=== PATIENT | female | born 1945 | race Caucasian/White ===

== ENCOUNTER 2019-09-20 13:38 | Outpatient (CLI) | payer MEDICARE, OTHER, SELFPAY ==
--- NOTE | 2019-09-20 15:03 | ECHO_ITS ---
Patient Info Name: Suzanne Flores Age: 74 years : 1945 Gender: Female Ht: 63 in Wt: 140 lbs BSA: 1.69 m2 HR: 69 bpm BP: 106 / 68 mmHg Technical Quality: Good Exam Date: 09/20/2019 2:29 PM Exam Location: [facility] Patient Status: Outpatient Admit Date: 09/20/2019 Staff Ordering Physician: PHYSICIAN NOT ON STAFF, NONSTAFF Coil Connector Repairer: Miguel Au, TAMIA, RT Attending Provider: PHYSICIAN NOT ON STAFF, NONSTAFF Exam Type: CA echo doppler color flow Study Info Indications R06.00 - Dyspnea, unspecified Complete two-dimensional, color flow and Doppler transthoracic echocardiogram is performed. Summary 1. Left ventricular chamber dimension is normal. 2. Left ventricular systolic function is normal, estimated at 60-65%. 3. The left ventricular diastolic function is grade I diastolic dysfunction. 4. E/e' 8 is minimally elevated. 5. Global longitudinal strain is normal at -21.7%. 6. There is trace tricuspid valve regurgitation. 7. No pulmonary hypertension, estimated pulmonary arterial systolic pressure is 31 mmHg. 8. There is trace pulmonic regurgitation. Left Ventricle E/e' 8 is minimally elevated. Global longitudinal strain is normal at -21.7%. Left ventricular chamber dimension is normal. Left ventricular systolic function is normal, estimated at 60-65%. The left ventricular diastolic function is grade I diastolic dysfunction. Right Ventricle Moderator band is normal variant. Right ventricular chamber dimension is normal. Right ventricular systolic function is normal. Left Atria Left atrial chamber dimension is normal. Right Atria Right atrial chamber dimension is normal. Aortic Valve The aortic valve is trileaflet. There is no aortic valve stenosis. There is no aortic valve regurgitation. Pulmonic Valve There is trace pulmonic regurgitation. Mitral Valve There is no mitral valve stenosis. There is no mitral valve regurgitation. Tricuspid Valve There is trace tricuspid valve regurgitation. No pulmonary hypertension, estimated pulmonary arterial systolic pressure is 31 mmHg. Pericardium/Pleural There is no pericardial effusion. Inferior Vena Cava Normal inferior vena cava with >50% collapse upon inspiration consistent with normal right atrial pressure, 5 mmHg. Aorta The aortic root size at the sinus of Valsalva is normal. Left Ventricular Outflow Tract Name Value Normal LVOT 2D LVOT Diameter 1.8 cm LVOT Doppler LVOT Peak Gradient 6 mmHg LVOT Mean Gradient 3 mmHg LVOT VTI 24 cm LVOT VTI/AV VTI Ratio 0.8 LVOT Stroke Volume 62 ml LVOT CO 3.8 l/min LVOT CI 2.3 l/min/m2 Pulmonic Valve Name Value Normal PV Doppler
--- NOTE | 2019-09-20 23:04 | WPDPFTINT ---
PFT Interpretation PFT Interpretation: DOS: 09/20/2019 REQUESTING: Dr. Cisco Hendrickson REASON FOR TESTING: Dyspnea PULMONARY FUNCTION TESTS The respiratory therapist noted that the patient had difficulty with breath hold during testing, and performed maneuvers to the best of her ability. Spirometry: Normal FEV1 84%, 1.56 L. FVC 79%, mildly decreased. FEV1% is normal. The UXV58-26% is decreased at 55%. After bronchodilator, FEV1 increases 12%, almost 200 ml, and DJO12-18% increases 77% which is significant. Lung volumes: Mild restriction with total lung capacity reduced at 75%. Normal RV. No air trapping. Increased airway resistance 717%. Diffusion: DLCO is 71%, mildly reduced. Flow volume loop: Flattening of the inspiratory limb and mild scooping of expiratory limb. IMPRESSION: Mixed restrictive and obstructive processes. Small airways pattern with good response to bronchodilator, mild restriction, increased airway resistance and mild diffusion impairment. Clinical correlation is recommended. Nika Starkey MD
--- NOTE | 2019-09-20 23:13 | WPDSIXMINUTE ---
Six Minute Walk Six Minute Walk: DOS: 09/20/2019 REQUESTING: Dr. Cisco Hendrickson REASON FOR TESTING: Dyspnea SIX MINUTE WALK This test was conducted per ATS guidelines. The testing was performed on room air. Initial saturation was 98%, pulse was 67, blood pressure 120/76. She walked for 6 minutes without stopping to rest, completing 1100 feet/335 meters. Saturation at the end of the test was 91% and pulse was 95. IMPRESSION: This study shows desaturation to 91% without lang hypoxemia. No supplemental oxygen is indicated with exertion. Distance walked is adequate for age. Nika Starkey MD
== END 2019-09-20 13:39 | disposition home or self-care (01) ==
DX: R06.09 Other forms of dyspnea (principal); R94.2 Abnormal results of pulmonary function studies
CPT/HCPCS: 93306; 94060; 94726; 94729

== ENCOUNTER 2019-12-01 10:49 | Outpatient (CLI) | payer MEDICARE, OTHER, SELFPAY ==
--- NOTE | ~2019-12-01 | CT_ITS ---
EXAMINATION: CT chest wo con DATE: 12/01/2019 11:32 INDICATION: Interstitial lung disease TECHNIQUE: Computed tomography (CT) of the chest was performed without intravenous contrast. The dose -length product (DLP) was 138.83 mGy-cm. Automated exposure control and iterative reconstruction tech nique were employed. COMPARISON: None FINDINGS: There is mild dependent atelectasis of the lower lobes. There are multiple subtle 2 to 3 mm nodules scattered throughout the lungs with a lower lung zone predominance. There is no pleural effu jerod or pneumothorax. There is no evidence of interstitial lung disease. Calcified coronary artery at herosclerosis is noted. Calcified lymph nodes of the left hilum and mediastinum as well as calcificat ions of the spleen likely reflect old granulomatous disease. There is mild thoracic spondylosis. IMPRESSION: 1. Multiple subtle, tiny nodules scattered throughout the lungs, predominantly in the lower lung zone s, likely infectious or inflammatory. No evidence of interstitial lung disease. Reviewed, dictated and finalized at location A. IMPRESSION: 1. Multiple subtle, tiny nodules scattered throughout the lungs, predominantly in the lower lung zones, likely infectious or inflammatory. No evidence of inte rstitial lung disease.
== END 2019-12-01 10:50 | disposition home or self-care (01) ==
LOC: ANHIMG 10:52
PROVIDERS: PCP Nurse Practitioner Adult Health; Visit Provider Nurse Practitioner
DX: J98.4 Other disorders of lung (principal); R91.8 Other nonspecific abnormal finding of lung field
CPT/HCPCS: 71250

== ENCOUNTER 2021-05-29 12:45 | Outpatient (CLI) | payer MEDICARE, OTHER, SELFPAY ==
--- NOTE | 2021-05-29 | ECHO_ITS ---
Patient Info Name: Suzanne Flores Age: 75 years : 1945 Gender: Female Ht: 63 in Wt: 130 lbs BSA: 1.63 m2 HR: 62 bpm BP: 143 / 75 mmHg Technical Quality: Good Exam Date: 05/29/2021 1:27 PM Exam Location: [facility] Patient Status: Outpatient Admit Date: 05/29/2021 Staff Ordering Physician: TerranceDara NP Community Midwife: Maty Stovall RDCS Attending Provider: JovaniDara NP Exam Type: CA echo doppler color flow Study Info Indications - hypotension Complete two-dimensional, color flow and Doppler transthoracic echocardiogram is performed. Summary 1. Complete two-dimensional, color flow and Doppler transthoracic echocardiogram is performed. 2. Left ventricular chamber dimension is normal. 3. Left ventricular systolic function is normal, estimated at 60-65%. 4. The left ventricular diastolic function is grade I diastolic dysfunction. 5. E/e' 12 is mildly elevated. 6. There is mild mitral valve regurgitation. 7. There is trace tricuspid valve regurgitation. 8. No pulmonary hypertension, estimated pulmonary arterial systolic pressure is 36 mmHg. 9. There is trace pulmonic regurgitation. Left Ventricle E/e' 12 is mildly elevated. Left ventricular chamber dimension is normal. Left ventricular systolic function is normal, estimated at 60-65%. The left ventricular diastolic function is grade I diastolic dysfunction. Right Ventricle Right ventricular chamber dimension is normal. Right ventricular systolic function is normal. Left Atria Left atrial chamber dimension is normal. Right Atria Right atrial chamber dimension is normal. Aortic Valve The aortic valve is trileaflet. There is no aortic valve stenosis. There is no aortic valve regurgitation. Pulmonic Valve There is trace pulmonic regurgitation. Mitral Valve There is no mitral valve stenosis. There is mild mitral valve regurgitation. Tricuspid Valve There is trace tricuspid valve regurgitation. No pulmonary hypertension, estimated pulmonary arterial systolic pressure is 36 mmHg. Pericardium/Pleural There is no pericardial effusion. Inferior Vena Cava Normal inferior vena cava with >50% collapse upon inspiration consistent with normal right atrial pressure, 5 mmHg. Aorta The aortic root size at the sinus of Valsalva is normal. Left Ventricular Outflow Tract Name Value Normal LVOT 2D LVOT Diameter 2.0 cm LVOT Doppler LVOT Peak Gradient 5 mmHg LVOT Mean Gradient 3 mmHg LVOT VTI 27 cm LVOT VTI/AV VTI Ratio 0.9 LVOT Stroke Volume 80 ml LVOT CO 15.2 l/min LVOT CI 9.3 l/min/m2 Pulmonic Valve Name Value Normal PV Doppler PV Peak
== END 2021-05-29 12:46 | disposition home or self-care (01) ==
LOC: ANHCARD 12:48
PROVIDERS: PCP Nurse Practitioner Adult Health; Visit Provider Nurse Practitioner Adult Health
DX: I34.0 Nonrheumatic mitral (valve) insufficiency (principal)
CPT/HCPCS: 93306

== ENCOUNTER 2022-11-10 15:04 | Emergency (ER) | payer MEDICARE, OTHER, SELFPAY ==
--- NOTE | ~2022-11-10 | CT_ITS ---
EXAMINATION: CT brain wo con DATE: 11/10/2022 16:52 INDICATION: Altered mental status. Confusion. TECHNIQUE: Computed tomography (CT) of the head was performed without intravenous contrast. Sagittal and coronal reconstructions were performed. The mA was adjusted according to patient size. Iterative reconstruction technique was employed. The dose-length product was 605.33 mGy-cm. COMPARISON: head CT dated 03/20/2017 FINDINGS: Moderate-sized region of encephalomalacia in the anterior left frontal lobe at the site of a prior sm aller region of edema and overlying subarachnoid hemorrhage which has since resolved. No acute intrac ranial hemorrhage, acute infarction or abnormal extra axial fluid collection. There is mild scattered white matter hypoattenuation consistent with chronic small vessel ischemic disease. Interval progres jerod of symmetric prominence of the sulci and ventricles consistent with moderate age-appropriate dif fuse cerebral volume loss. No mass/mass effect. Intracranial calcified cerebral atherosclerosis is no romeo at the carotid siphons. The orbits, paranasal sinuses and mastoid air cells are normal. IMPRESSION: 1. Moderate-sized region of encephalomalacia in the left frontal lobe likely sequela of prior trauma or infarct. No other acute intracranial process. 2. Age-related changes including progression of now moderate diffuse volume loss and mild scattered w chaya matter hypoattenuation consistent with chronic small vessel ischemic disease. Reviewed, dictated and finalized at location A. IMPRESSION: 1. Moderate-sized region of encephalomalacia in the left frontal lobe likely se quela of prior trauma or infarct. No other acute intracranial process. 2. Age-related changes including progression of now moderate diffuse volume los s and mild scattered white matter hypoattenuation consistent with chronic small vessel ischemic disease.
[2022-11-10 15:09] VITALS: BP 155/64; PULSE 67; RESP 16; TEMP 36.4; O2SAT 100
--- NOTE | 2022-11-10 15:44 | ED.AMS ---
HPI - Altered Mental Status General Chief Complaint: Altered Mental Status Stated Complaint: confusion Time Seen by Provider: 11/10/22 15:26 History of Present Illness HPI narrative: Patient is a 77-year-old female here with her daughter due to concerns over bizarre behavior. Patient does have a history of Alzheimer's dementia and has been taking her medicine for this. She was initially diagnosed about a year ago, her symptoms have been progressing since onset. She lives at home by herself, daughter is concerned because today patient walked over to the police station to file a police report about a stolen car, did not remember that her family members took her car away from her because she should not be driving. Patient is upset and is adamant that her car was stolen from her. Related Data Allergies Allergy/AdvReac Type Severity Reaction Status Date / Time NO KNOWN DRUG ALLERGIES Allergy Unknown Y Uncoded 03/20/17 09:03 (Class Allergy) Review of Systems Review of Systems: Gen.: Denies fevers or chills Eyes: Denies eye pain or visual change ENT: Denies congestion Respiratory: Denies shortness of breath or cough CV: Denies chest pain or palpitations GI: Denies abdominal pain nausea, emesis or diarrhea denies burning, urgency, frequency or hematuria Musculoskeletal: Denies back pain or muscle pain Neuro: Denies numbness, tingling, weakness or focal weakness Skin: Denies rash Except as documented, all other systems reviewed and negative PMFSH Social History Social History Smoking status: Never smoker Alcohol intake: never Exam Narrative: APPEARANCE: Well appearing, no pain in distress, well-nourished. Head: Normocephalic and atraumatic. EYES: PERRLA/EOMI, conjunctivae clear NOSE: No nasal drainage EARS: External ear normal in appearance THROAT: Oropharynx is clear. Mucous membranes are moist. NECK: Supple. No adenopathy, no masses. RESPIRATORY: Airway patent, respirations nonlabored. Clear to auscultation bilaterally, no rales, rhonchi, wheezing. CARDIOVASCULAR: Regular rate and rhythm without murmurs, rubs, or gallops. ABDOMINAL: Normoactive bowel sounds. Soft, nontender, nondistended. No rebound tenderness or guarding. MUSCULOSKELETAL: Extremities are warm and well-perfused. Moves all extremities well. No edema. NEURO: Normal speech. No focal neurologic deficits. SKIN: Skin is warm and dry. No rashes. PSYCHIATRIC: Normal affect/mood. Course Vital Signs Vital signs: Vital Signs Temperature 97.6 F 11/10/22 15:09 Pulse Rate 67 11/10/22 15:09 Respiratory Rate 16 11/10/22 15:09 Blood Pressure 155/64 H 11/10/22 15:09 Pulse Oximetry 100 11/10/22 15:09 Oxygen Delivery Room Air 11/10/22 15:09 Temperature 97.6 F 11/10/22 15:09 Pulse Rate 67 11/10/22 15:09 Respiratory Rate 16 11/10/22 15:09 Blood Pressure 155/64 H 11/10/22 15:09 Pulse Oximetry 100 11/10/22 15:09 Oxygen Delivery Room Air 11/10/22 15:09 MDM - Altered Mental Status MDM Narrative Medical decision making narrative: 77-year-old female with a history of Alzheimer's dementia here with her daughter over concerns about confusion and agitation, progressing over the past several years since she was diagnosed but worse today she went to the police station and insisted her car was stolen. Patient herself is asymptomatic; remembers this event and still believes her car was stolen. Her basic labs are unremarkable. Her vital signs are normal, no focal deficits on exam. Head CT is normal. UA with questionable UTI; will treat with antibiotics. Aniyah from care coordination saw patient and provided with outpatient resources, patient lives by herself and is currently independent; no indication for admission at this time. Likely sequela of dementia. Shared decision-making was used with patient and her family, admission was offered which they declined, will use the resources provided to them. We discussed return pr
[2022-11-10 16:04] LABS: Basophils Absolute Auto 0.1 K/mm3 (0.0-0.1); Basophils Percent Auto 0.8 % (0.2-1.2); Eosinophils Absolute Auto 0.2 K/mm3 (0-0.3); Eosinophils Percent Auto 3.4 % (0-4.4); Hematocrit 39.7 % (37.0-47.0); Hemoglobin 12.6 g/dL (12.0-15.0); Immature Granulocyte Absolute 0.02 K/mm3 (0.00-0.031); Immature Granulocyte Percent A 0.3 % (0-0.5); Lymphocytes Absolute Auto 1.85 K/mm3 (0.9-3.2); Lymphocytes Percent Auto 29.7 % (18.3-44.2); Mean Corpuscular HGB Conc 31.7 g/dl (32-36); Mean Corpuscular Hemoglobin 29.4 pg (26-34); Mean Corpuscular Volume 92.8 fl (80-100); Mean Platelet Volume 10.1 fl (7.4-10.4); Monocytes Absolute Auto 0.5 K/mm3 (0.1-0.6); Monocytes Percent Auto 7.6 % (2.6-8.5); Neutrophils Absolute Auto 3.6 K/mm3 (1.3-6.7); Neutrophils Percent Auto 58.2 % (45.5-73.1); Platelet Count Result 187 k/mm3 (150-375); Red Blood Count 4.28 M/mm3 (4.2-5.4); Red Cell Distribution Width 13.7 % (11.5-14.5); White Blood Count 6.2 K/mm3 (4.5-10.0)
[2022-11-10 16:07] LABS: Appearance Urine Clear (Clear); Bacteria Urine None Seen /hpf; Bilirubin Urine Negative (Negative); Blood Urine Negative (Negative); Color Urine Yellow (Yellow); Glucose Urine UA 3+ mg/dL (Negative); Ketones Urine Trace mg/dL (Negative); Leukocyte Esterase Ur Trace LEU/UL (Negative); Nitrate Urine Negative (Negative); Non Pathogenic Casts 0-2; Protein Urine Negative (Negative); RBC Urine 0-2 /hpf (0-2); Specific Grav Ur 1.019 (1.001-1.035); Squamous Epithelial Cell Urine None seen /hpf (Few); Urobilinogen Urine 0.2 mg/dL (<2.0)
[2022-11-10 16:08] LABS: Add Urine Microscopic? YES
[2022-11-10 16:13] LABS: Alanine Aminotransferase 15 U/L (6-35); Albumin Level 4.7 g/dL (3.5-5.1); Alkaline Phosphatase 90 U/L (38-126); Anion Gap 8 mmol/L (8-16); Aspartate Amino Transferase 24 U/L (14-36); Bilirubin,Total 0.7 mg/dL (0.2-1.3); Blood Urea Nitrogen 19 mg/dL (7-17); Calcium 9.4 mg/dL (8.4-10.2); Carbon Dioxide 26 mmol/L (22-30); Chloride 101 mmol/L (98-107); Estimated CRCL calculation 32 ml/min; Estimated Glomerular Filt Rate 48; Glucose 137 mg/dL (65-110); Potassium 4.4 mmol/L (3.4-5.0); Sodium 135 mmol/L (137-145)
--- NOTE | 2022-11-10 16:44 | PCCCNOTE ---
Met with patient and daughter's Aracelis and Sondra in ER Room 16. Patient has Alztheimer's and lives alone. Her daughter Sondra lives across the street but does work. Daughter Aracelis has health issues. Patient today walked to police department to report that her car was stolen but the car was taken away by daughters due to Alztheimers. Patient verbalizes that she is fine at home, does all her own cooking, cleaning and works in her garden. Augusto conversation opened with patient and family about progression of disease and how need to open conversation now about how family can work together. Patient's goal will be to stay at home, she is adamant that she does not want memory care facility. Discussed private caregiving, Provided resources for both private caregiving and memory care facilities. Daughter Sondra states that she has called and emailed [facility] about meals on wheels and choreworker but has not heard anything back. This career representative will call and follow up. Called to , [facility] through [facility], no answer left vm message requesting a call back to Sondra Smith at [phone] to evaluated for services.
== END 2022-11-10 17:35 | disposition home or self-care (01) ==
PROVIDERS: Emergency Provider Physician Assistant; PCP Family Medicine
DX: G30.9 Alzheimer's disease, unspecified (principal); F02.80 Dementia in other diseases classified elsewhere, unspecified severity, without behavioral disturbance, psychotic disturbance, mood disturbance, and anxiety
CPT/HCPCS: 36415; 70450; 80053; 81001; 85025; 87086; 99284

== ENCOUNTER 2022-11-12 09:38 | Inpatient (IN) | payer MEDICARE, OTHER, SELFPAY ==
[2022-11-12] VITALS (9 sets, daily range): BP systolic 91–111; BP diastolic 46–78; PULSE 62–78; RESP 12–18; TEMP 36.1–37.3; O2SAT 97–100
--- NOTE | ~2022-11-12 | XR_ITS ---
Portable chest x-ray Comparison: None Clinical History: Altered mental status Findings: Lungs are clear, without focal consolidation or pleural effusion. Cardiomediastinal silho uette is unremarkable. Bones and soft tissues are unremarkable. Impression: Normal chest. Reviewed, dictated and finalized at location . Impression: Normal chest.
--- NOTE | 2022-11-12 09:49 | ECG_ITS ---
Measurements Intervals [place] Rate: 66 P: -2 SC: 131 QRS: -6 QRSD: 81 T: 48 QT: 402 QTc: 423 Interpretive Statements SINUS RHYTHM WITH SINUS ARRHYTHMIA MINIMAL VOLTAGE CRITERIA FOR LVH, CONSIDER NORMAL VARIANT [MEETS CRITERIA IN ONE OF: R(aVL), S(V1), R(V5), R(V5/V6)+S(V1)] NONSPECIFIC ST AND T-WAVE ABNORMALITY NO PREVIOUS ECG AVAILABLE FOR COMPARISON Electronically Signed On 11-12-2022 11:59:36 CDT by Nicolle Tenorio M.D.
--- NOTE | 2022-11-12 09:54 | ED.AMS ---
HPI - Altered Mental Status General Chief Complaint: Altered Mental Status <Lila Gramajo PA-C - Last Filed: 11/12/22 13:10> Stated Complaint: [id number] <Lila Gramajo PA-C - Last Filed: 11/12/22 13:10> Time Seen by Provider: 11/12/22 09:39 <Lila Gramajo PA-C - Last Filed: 11/12/22 13:10> History of Present Illness HPI narrative: Patient is a 77-year-old female here via EMS with family numbers due to concerns about aggressive behavior. Patient has a history of Alzheimer's dementia that was diagnosed about a year ago, and since diagnosis that she has been progressively worsening but the past week has been the worst. Members report that patient has been verbally and physically aggressive, hitting and kicking them. She lives by herself. She was seen here 2 days ago and was diagnosed with UTI, on chart review the culture did not grow any bacteria. Patient is verbally aggressive with staff, repeatedly stating that she wants to go home and does not need to be here. <Lila Gramajo PA-C - Last Filed: 11/12/22 13:10> Related Data Home Medications: Home Medications Medication Instructions Recorded Confirmed empagliflozin 10 mg tablet 10 mg PO DAILY 11/12/22 11/12/22 (Jardiance) ferrous sulfate 325 mg (65 mg 325 mg PO BID 11/12/22 11/12/22 iron) tablet (FeroSul) gabapentin 300 mg capsule 300 mg PO HS 11/12/22 11/12/22 levothyroxine 50 mcg tablet 50 mcg PO DAILY 11/12/22 11/12/22 lovastatin 40 mg tablet 40 mg PO DAILY 11/12/22 11/12/22 memantine 10 mg tablet 10 mg PO BID 11/12/22 11/12/22 metformin 500 mg tablet 500 mg PO BID 11/12/22 11/12/22 sertraline 50 mg tablet 100 mg PO DAILY 11/12/22 11/12/22 vitamin B complex (B 1 tablet PO DAILY 11/12/22 11/12/22 Complex-Vitamin B12 tablet) <Lila Gramajo PA-C - Last Filed: 11/12/22 13:10> Allergies/Adverse Reactions: Allergies Allergy/AdvReac Type Severity Reaction Status Date / Time NO KNOWN DRUG ALLERGIES Allergy Unknown Y Uncoded 11/12/22 09:51 (Class Allergy) <Lila Gramajo PA-C - Last Filed: 11/12/22 13:10> Review of Systems Review of Systems: ROS unobtainable: Yes unobtainable due to mental status <Lila Gramajo PA-C - Last Filed: 11/12/22 13:10> [facility] Past Medical History Medical History: Medical History (Updated 11/12/22 @ 13:40 by Urmila Bang PA-C) Chronic kidney disease, stage 3 Dementia Hyperlipidemia Hypertension Left leg DVT (08/2001) Type 2 diabetes mellitus <Lila Gramajo PA-C - Last Filed: 11/12/22 13:10> Social History Social History: Social History (Updated 11/12/22 @ 13:29 by Urmila Bang PA-C) Social History: Surrogate medical decision maker: Code status: Smoking status: Never smoker Alcohol intake: never Substance use: never Additional living arrangements comments: Lives in [place]. Additional occupation/education comments: Retired from [employer]. Spiritual care concerns: No <Lila Gramajo PA-C - Last Filed: 11/12/22 13:10> Exam Narrative: APPEARANCE: Well-groomed, sitting in bed yelling at staff members and EMS personnel Head: Normocephalic and atraumatic. EYES: PERRLA/EOMI, conjunctivae clear NOSE: No nasal drainage EARS: External ear normal in appearance THROAT: Oropharynx is clear. Mucous membranes are moist. NECK: Supple. No adenopathy, no masses. RESPIRATORY: Airway patent, respirations nonlabored. Clear to auscultation bilaterally, no rales, rhonchi, wheezing. CARDIOVASCULAR: Regular rate and rhythm without murmurs, rubs, or gallops. ABDOMINAL: Normoactive bowel sounds. Soft, nontender, nondistended. No rebound tenderness or guarding. MUSCULOSKELETAL: Extremities are warm and well-perfused. Moves all extremities well. No edema. NEURO: Normal speech. No focal neurologic deficits. SKIN: There is a skin tear to her right forearm with no
[2022-11-12 10:21] LABS: Basophils Absolute Auto 0.1 K/mm3 (0.0-0.1); Basophils Percent Auto 1.1 % (0.2-1.2); Eosinophils Absolute Auto 0.2 K/mm3 (0-0.3); Hematocrit 38.2 % (37.0-47.0); Hemoglobin 11.9 g/dL (12.0-15.0); Immature Granulocyte Absolute 0.01 K/mm3 (0.00-0.031); Immature Granulocyte Percent A 0.2 % (0-0.5); Lymphocytes Absolute Auto 1.32 K/mm3 (0.9-3.2); Lymphocytes Percent Auto 23.2 % (18.3-44.2); Mean Corpuscular HGB Conc 31.2 g/dl (32-36); Mean Corpuscular Volume 92.9 fl (80-100); Mean Platelet Volume 10.4 fl (7.4-10.4); Monocytes Absolute Auto 0.4 K/mm3 (0.1-0.6); Monocytes Percent Auto 7.2 % (2.6-8.5); Neutrophils Absolute Auto 3.7 K/mm3 (1.3-6.7); Neutrophils Percent Auto 65.3 % (45.5-73.1); Platelet Count Result 171 k/mm3 (150-375); Red Blood Count 4.11 M/mm3 (4.2-5.4); Red Cell Distribution Width 13.6 % (11.5-14.5); White Blood Count 5.7 K/mm3 (4.5-10.0)
[2022-11-12 10:25] LABS: Ammonia < 9 umol/L (9-30)
[2022-11-12 10:26] LABS: Alanine Aminotransferase 18 U/L (6-35); Albumin Level 4.5 g/dL (3.5-5.1); Alkaline Phosphatase 95 U/L (38-126); Anion Gap 8 mmol/L (8-16); Aspartate Amino Transferase 26 U/L (14-36); Bilirubin,Total 0.6 mg/dL (0.2-1.3); Blood Urea Nitrogen 23 mg/dL (7-17); Calcium 9.4 mg/dL (8.4-10.2); Carbon Dioxide 25 mmol/L (22-30); Chloride 104 mmol/L (98-107); Estimated CRCL calculation 27 ml/min; Estimated Glomerular Filt Rate 40; Glucose 236 mg/dL (65-110); Potassium 4.1 mmol/L (3.4-5.0); Sodium 137 mmol/L (137-145)
[2022-11-12 11:03] LABS: Appearance Urine Clear (Clear); Bilirubin Urine Negative (Negative); Blood Urine Negative (Negative); Color Urine Yellow (Yellow); Glucose Urine UA 3+ mg/dL (Negative); Ketones Urine Negative (Negative); Leukocyte Esterase Ur Negative LEU/UL (Negative); Nitrate Urine Negative (Negative); Protein Urine Negative (Negative); Urobilinogen Urine 0.2 mg/dL (<2.0)
[2022-11-12] MEDS: SODIUM CHLORIDE 0.9% IV 1,000 ML 999 ML IV CONT (11:05)
[2022-11-12 11:08] LABS: Add Urine Microscopic? NO
--- NOTE | 2022-11-12 11:55 | PC.NURSE ---
Pt has remained verbally abusive to staff and family members since arr
--- NOTE | 2022-11-12 11:59 | PC.NURSE ---
Pt has remained verbally abusive to staff and family members since arrival.
--- NOTE | 2022-11-12 13:25 | PM.IMHP ---
H&P: HPI History of Present Illness Date/Time: 11/12/22 14:15 Chief Complaint: Agitation. Narrative: This is a 77-year-old female with dementia, hypertension, hyperlipidemia, diabetes, and remote history of DVT who presented to the emergency department via EMS from home for evaluation of agitation. She is a fair historian and her daughter and granddaughter provide additional history, with the patient's permission. She was diagnosed with dementia about a year ago and she has been doing quite well on memantine although it looks as though she was started on donepezil little over a month ago. Within the past week or so family members note that she has had a significant change in behavior. She has been argumentative and perseverating on the fact that her daughter will not give her the keys to her car which she has not had for over 6 months. She filed a police report a couple of days ago, stating that her son had stolen her late 's truck, however she had given him that truck approximately 6 months ago. She has been going across the street to her daughter's home and she has been very argumentative with her regarding her car keys. Last night her son-in-law had to call the police because she was so aggressive. Thereafter she went back to her house and was up until 02:00 cleaning out her garage and sitting in a lawn chair out in her yard. It does not sound as though she has been sleeping much which is unusual for her as prior to the last several weeks it sounds as though he was not very active during the daytime whatsoever. Family members are having difficulties controlling her and are concerned that she is not safe at home alone. They are not certain she is taking her medications appropriately at home. It is noted that she was seen in the ED 2 days ago after she filed a police report and at that time her urine was suspicious for possible UTI and she was prescribed nitrofurantoin however her urine culture did not show any growth. She was reportedly combative with EMS and ER staff on arrival and she was given 2.5 mg IM Haldol in the ED with some improvement her mood. She is pleasant and mostly cooperative with me at the time my evaluation but she frequently starts arguments with her family members at bedside. She has no complaints currently. Vital signs have been stable. Labs were reviewed and they are pretty consistent with those drawn a couple of days ago. Review of Systems Review of Systems: Reviewed and are negative though limited given her confusion. [facility] Past Medical History Medical History (Updated 11/12/22 @ 20:51 by Urmila Bang PA-C) Chronic kidney disease, stage 3 Dementia Hyperlipidemia Hypertension Left leg DVT (08/2001) No history of major surgery within 1 month Type 2 diabetes mellitus Family History Family History (Updated 11/12/22 @ 20:47 by Urmila Bang PA-C) Mother Alzheimer's dementia Social History Social History (Updated 11/12/22 @ 20:48 by Urmila Bang PA-C) Social History: Surrogate medical decision maker: Aracelis Peck, daughter. Code status: Full code. Smoking status: Never smoker Alcohol intake: never Substance use: never Additional living arrangements comments: Lives alone in [place]. She has a 1-year-old dog named Franck. Daughter lives across the street. 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 Spiritual care concerns: No Meds Home Medications and Allergies Home Medications Medication Instructions Recorded Confirmed Type empagliflozin 10 mg tablet 10 mg PO DAILY 11/12/22 11/12/22 History (Jardiance) ferrous sulfate 325 mg (65 mg 325 mg PO BID 11/12/22 11/12/22 History iron) tablet (FeroSul) gabapentin 300 mg capsule 300 mg PO HS 11/12/22 11/12/22 History levothyroxine 50 mcg tablet 50 mcg PO DAILY 11/12/22 11/12/22 History lovastatin 40 mg tablet 40 mg PO DAILY 11/12/22 11/12/22 History memantine 10 mg
--- NOTE | 2022-11-12 14:44 | ADMGEN ---
This patient, Suzanne Flores, was admitted to [facility] Surg Room 331-02. Patient/family oriented to hospital policies and general routines including ID bracelet, bed and alarms, visiting hours, pain management, procedures, bathroom and other care routines, personal items, smoking policy, room service/diet, and visiting hours. Information on how to activate the Rapid Response Team has been discussed. Patient/Family are encouraged to report perceived risks to care and to ask questions if they do not understand what they are told or what they should do.
[2022-11-12 20:06] LABS: Glucose Point of Care 212 mg/dl (65-105)
[2022-11-12] MEDS: GABAPENTIN 300 MG CAPSULE PO (22:31)
[2022-11-13] VITALS (7 sets, daily range): BP systolic 109–134; BP diastolic 55–75; PULSE 58–83; RESP 16; TEMP 35.8–36.2; O2SAT 99
[2022-11-13] MEDS: LEVOTHYROXINE SODIUM 50 MCG TABLET PO (05:08)
[2022-11-13 06:47] LABS: Hematocrit 32.7 % (37.0-47.0); Hemoglobin 10.1 g/dL (12.0-15.0); Mean Corpuscular HGB Conc 30.9 g/dl (32-36); Mean Corpuscular Hemoglobin 28.8 pg (26-34); Mean Corpuscular Volume 93.2 fl (80-100); Mean Platelet Volume 10.3 fl (7.4-10.4); Platelet Count Result 132 k/mm3 (150-375); Red Blood Count 3.51 M/mm3 (4.2-5.4); Red Cell Distribution Width 13.8 % (11.5-14.5); White Blood Count 5.2 K/mm3 (4.5-10.0)
[2022-11-13 07:03] LABS: Anion Gap 4 mmol/L (8-16); Blood Urea Nitrogen 20 mg/dL (7-17); Calcium 8.5 mg/dL (8.4-10.2); Carbon Dioxide 26 mmol/L (22-30); Chloride 107 mmol/L (98-107); Estimated CRCL calculation 35 ml/min; Estimated Glomerular Filt Rate 54; Glucose 155 mg/dL (65-110); Magnesium 1.8 mg/dL (1.6-2.3); Potassium 3.9 mmol/L (3.4-5.0); Sodium 137 mmol/L (137-145)
[2022-11-13 07:34] LABS: Hemoglobin A1C 7.3 % (<5.7)
[2022-11-13 08:22] LABS: Glucose Point of Care 151 mg/dl (65-105)
[2022-11-13] MEDS: LOVASTATIN 20 MG TABLET 40 MG PO (09:07)
[2022-11-13] MEDS: SERTRALINE HCL 50 MG TABLET 100 MG PO (09:07)
[2022-11-13] MEDS: MEMANTINE 10 MG TABLET PO ×2 (09:07→16:01)
[2022-11-13] MEDS: FERROUS SULFATE 324 MG TABLET PO ×2 (09:07→16:01)
[2022-11-13] MEDS: EMPAGLIFLOZIN 10 MG TABLET PO (09:08)
[2022-11-13] MEDS: VITAMIN B COMPLEX CAPSULE 1 CAP PO (09:08)
--- NOTE | 2022-11-13 10:59 | PM.IMPN ---
Progress Note: A&P Assessment and Plan (1) Dementia with behavioral disturbance: Code(s): F03.918 - Unspecified dementia, unspecified severity, with other behavioral disturbance Status: Acute Assessment and Plan: Patient was diagnosed with dementia about a year ago and had been maintained on memantine although she was recently started on donepezil a little over a month ago. It is unclear what has caused her change in behavior the last 1 week however it sounds as though she has not been sleeping well and sleep deprivation may very well be a contributing factor. Donepezil can cause insomnia so that is a consideration as well. There is no evidence to suggest active infection on labs or by history. Her BUN and creatinine are a bit elevated from baseline though not significantly so and I doubt that dehydration is playing a part. I will ask Neurology to see her in consultation for recommendations. In interim she will be started on melatonin 5 mg at bedtime. 11/13/2022 interval history: patient was brought to ER with agitation and fighting patient had CT scan of head and it showed moderate-sized region of encephalomalacia in the left frontal lobe likely sequela of prior trauma or infarct. No other acute intracranial process. Currently patient eating her breakfast is feeling much better, patient is calmer and cooperative, patient will need a place will discussed with the urgent care physician and further recommendation to follow will have a PT OT evaluate the patient. (2) Chronic kidney disease, stage 3: Code(s): N18.30 - Chronic kidney disease, stage 3 unspecified Status: Acute Assessment and Plan: Stable on review of previous labs. (3) Type 2 diabetes mellitus: Code(s): E11.9 - Type 2 diabetes mellitus without complications Status: Acute Assessment and Plan: Random glucose was 236. Continue Jardiance. Initiate sliding scale insulin, Accu-Cheks, and hypoglycemic protocol. Subjective Date/time seen: 11/13/22 10:59 Interval history: Agitation. Narrative: This is a 77-year-old female with dementia, hypertension, hyperlipidemia, diabetes, and remote history of DVT who presented to the emergency department via EMS from home for evaluation of agitation. She is a fair historian and her daughter and granddaughter provide additional history, with the patient's permission. She was diagnosed with dementia about a year ago and she has been doing quite well on memantine although it looks as though she was started on donepezil little over a month ago. Within the past week or so family members note that she has had a significant change in behavior. She has been argumentative and perseverating on the fact that her daughter will not give her the keys to her car which she has not had for over 6 months. She filed a police report a couple of days ago, stating that her son had stolen her late 's truck, however she had given him that truck approximately 6 months ago. She has been going across the street to her daughter's home and she has been very argumentative with her regarding her car keys. Last night her son-in-law had to call the police because she was so aggressive. Thereafter she went back to her house and was up until 02:00 cleaning out her garage and sitting in a lawn chair out in her yard. It does not sound as though she has been sleeping much which is unusual for her as prior to the last several weeks it sounds as though he was not very active during the daytime whatsoever. Family members are having difficulties controlling her and are concerned that she is not safe at home alone. They are not certain she is taking her medications appropriately at home. It is noted that she was seen in the ED 2 days ago after she filed a police report and at that time her urine was suspicious for possible UTI and she was prescribed nitrofurantoin however her urine culture did not show any growth. She was reportedly combative with E
--- NOTE | 2022-11-13 11:33 | WPDNEURCNPN ---
Assessment and Plan Assessment and plan (1) Dementia with behavioral disturbance: Code(s): F03.918 - Unspecified dementia, unspecified severity, with other behavioral disturbance Status: Acute (2) Agitation: Code(s): R45.1 - Restlessness and agitation Status: Acute Plan Suzanne Flores is a 77 year old female with a history of dementia, HTN, HLD, DM presenting due to concerns for agitation. There does not seem to be any provoking factors. Could be related to progression of dementia, but such acute change is unusual. Considering sleep deprivation as enticing factor. Family thinks maybe sleep issues started around the time that Aricept was started. - Family would like to hold off on any additional medications for agitation at this time - Continue Namenda 10mg BID - Will wean Aricept to 5mg daily x 1 week, then discontinue; trying to see if sleep will improve - Daughter would like to have patient follow up in [facility] Consult date: 11/13/22 Reason for consult: Dementia/agitation HPI: Suzanne Flores is a 77 year old female with a history of dementia, HTN, HLD, DM presenting due to concerns for agitation. Patient was diagnosed with dementia about a year ago. She has been taking Namenda 10mg BID consistently since then. However, about a month ago she was started on donepezil. Within the past week, family has noted that she has been more argumentative and combative. She has been arguing with her daughter about car keys and believes that her son stole her 's truck. The police had to be called, because patient was being so aggressive. Of note, patient has not been sleeping well over the past few weeks. Family has concerns regarding her safety at home. She was seen in the ED a few days ago and her UA at that time was concerning for possible UTI. She was given antibiotics but her urine culture ended up being negative. When she presented to the ED the second time (for agitation), she was combative and given 2.5mg IM dose of Haldol. CT head showed moderate sized region of encephalomalacia in the left frontal lobe. Patient's daughters are at bedside this morning. They feel that she is back to her baseline. Patient reports that she was just angry about the situation with her car and feels better. Review of Systems Constitutional: Constitutional: Reports no additional constitutional complaints Eyes: Eyes: Reports no additional eye complaints ENT: Reports system reviewed and no additional complaints, except as documented Cardiovascular: Cardiovascular: Reports no additional cardiovascular complaints Respiratory: Respiratory: Reports no additional respiratory complaints Gastrointestinal: Gastrointestinal: Reports no additional gastrointestinal complaints Genitourinary: Genitourinary: Reports no additional female genitourinary complaints Musculoskeletal: Musculoskeletal: Reports no additional musculoskeletal complaints Integumentary/Breasts: Skin/Breast: Reports system reviewed and no additional complaints, except as docu Neurologic: Reports as per HPI Psychiatric: Psychiatric: Reports anxiety, Reports behavioral changes and Reports depression PMFSH Past Medical History Medical History Chronic kidney disease, stage 3 Dementia Hyperlipidemia Hypertension Left leg DVT (08/2001) No history of major surgery within 1 month Type 2 diabetes mellitus Family History Family History Mother Alzheimer's dementia Social History Social History Social History: Surrogate medical decision maker: Aracelis Peck, daughter. Code status: Full code. Smoking status: Never smoker Alcohol intake: never Substance use: never Additional living arrangements comments: Lives alone in [place]. She has a 1-year-old dog named Franck. Daughter lives across the street.
[2022-11-13 11:54] LABS: Glucose Point of Care 159 mg/dl (65-105)
--- NOTE | 2022-11-13 14:12 | PM.DS ---
DS: Admitting Diagnosis Discharge Date 11/13/2022 Admitting Diagnosis Agitation. DS: Discharge Diagnosis Discharge Diagnosis (1) Dementia with behavioral disturbance: Code(s): F03.918 - Unspecified dementia, unspecified severity, with other behavioral disturbance Status: Acute Assessment and Plan: Patient was diagnosed with dementia about a year ago and had been maintained on memantine although she was recently started on donepezil a little over a month ago. It is unclear what has caused her change in behavior the last 1 week however it sounds as though she has not been sleeping well and sleep deprivation may very well be a contributing factor. Donepezil can cause insomnia so that is a consideration as well. There is no evidence to suggest active infection on labs or by history. Her BUN and creatinine are a bit elevated from baseline though not significantly so and I doubt that dehydration is playing a part. I will ask Neurology to see her in consultation for recommendations. In interim she will be started on melatonin 5 mg at bedtime. 11/13/2022 interval history: patient was brought to ER with agitation and fighting patient had CT scan of head and it showed moderate-sized region of encephalomalacia in the left frontal lobe likely sequela of prior trauma or infarct. No other acute intracranial process. Currently patient eating her breakfast is feeling much better, patient is calmer and cooperative, patient will need a place will discussed with the primary care md and further recommendation to follow will have a PT OT evaluate the patient. (2) Chronic kidney disease, stage 3: Code(s): N18.30 - Chronic kidney disease, stage 3 unspecified Status: Acute Assessment and Plan: Stable on review of previous labs. (3) Type 2 diabetes mellitus: Code(s): E11.9 - Type 2 diabetes mellitus without complications Status: Acute Assessment and Plan: Random glucose was 236. Continue Jardiance. Initiate sliding scale insulin, Accu-Cheks, and hypoglycemic protocol. DS: Summary Hospital Course Reason for hospitalization: Agitation. Narrative: This is a 77-year-old female with dementia, hypertension, hyperlipidemia, diabetes, and remote history of DVT who presented to the emergency department via EMS from home for evaluation of agitation. She is a fair historian and her daughter and granddaughter provide additional history, with the patient's permission. She was diagnosed with dementia about a year ago and she has been doing quite well on memantine although it looks as though she was started on donepezil little over a month ago. Within the past week or so family members note that she has had a significant change in behavior. She has been argumentative and perseverating on the fact that her daughter will not give her the keys to her car which she has not had for over 6 months. She filed a police report a couple of days ago, stating that her son had stolen her late 's truck, however she had given him that truck approximately 6 months ago. She has been going across the street to her daughter's home and she has been very argumentative with her regarding her car keys. Last night her son-in-law had to call the police because she was so aggressive. Thereafter she went back to her house and was up until 02:00 cleaning out her garage and sitting in a lawn chair out in her yard. It does not sound as though she has been sleeping much which is unusual for her as prior to the last several weeks it sounds as though he was not very active during the daytime whatsoever. Family members are having difficulties controlling her and are concerned that she is not safe at home alone. They are not certain she is taking her medications appropriately at home. It is noted that she was seen in the ED 2 days ago after she filed a police report and at that time her urine was suspicious for possible UTI and she was prescribed nitrofurantoin
== END 2022-11-13 15:35 | disposition home or self-care (01) | DRG 884 ==
LOC: ANHED 11:43 → ANH3MEDSUR 13:58
PROVIDERS: Physician Assistant; Admitting Provider Family Medicine; Emergency Provider Physician Assistant; PCP Family Medicine; Visit Provider Family Medicine
DX: F03.918 Unspecified dementia, unspecified severity, with other behavioral disturbance (principal); I12.9 Hypertensive chronic kidney disease with stage 1 through stage 4 chronic kidney disease, or unspecified chronic kidney disease; N18.30 Chronic kidney disease, stage 3 unspecified; E11.22 Type 2 diabetes mellitus with diabetic chronic kidney disease; N18.9 Chronic kidney disease, unspecified; E78.5 Hyperlipidemia, unspecified; Z86.718 Personal history of other venous thrombosis and embolism
CPT/HCPCS: 36415; 71045; 80048; 80053; 81003; 82140; 82948; 83036; 83735; 84436; 84443; 85025; 85027; 93005; 96360; 99285; A9270; G0378; J7030

== ENCOUNTER 2024-04-30 15:10 | Emergency (ER) | payer MEDICARE, OTHER, SELFPAY ==
[2024-04-30 15:18] VITALS: BP 115/57; PULSE 69; RESP 15; TEMP 36.6; O2SAT 98
[2024-04-30 15:30] LABS: Glucose Point of Care 243 mg/dl (65-105)
[2024-04-30 17:01] VITALS: BP 123/106; PULSE 63; RESP 16; O2SAT 97
[2024-04-30 17:12] LABS: Add Urine Microscopic? NO; Appearance Urine Clear (Clear); Bilirubin Urine Negative (Negative); Blood Urine Negative (Negative); Color Urine Yellow (Yellow); Glucose Urine UA 3+ mg/dL (Negative); Ketones Urine Negative (Negative); Leukocyte Esterase Ur Negative LEU/UL (Negative); Nitrate Urine Negative (Negative); Protein Urine Negative (Negative); Specific Grav Ur 1.028 (1.001-1.035); Urobilinogen Urine 0.2 mg/dL (<2.0)
--- NOTE | 2024-04-30 17:22 | ED.GENADULT ---
HPI - General Adult General Chief complaint: Recheck/Abnormal Lab/Rx Stated complaint: increased BG and swolllen extremity Time Seen by Provider: 04/30/24 16:33 History of Present Illness HPI narrative: Was 78-year-old female presents to the emergency department for evaluation for lower extremity edema and elevated blood sugar. Patient is cared for by her family members but her family members were out of town and the patient was being cared for by friends of the family. A friend of the family became concerned because they noticed the patient had lower extremity edema, daughter states this is not new for her. Also checked her blood sugar and noted it was greater than 500. Daughter is unsure if there glucometer has been calibrated. Upon arrival to the emergency department patient's blood sugar was 243 which is by closer to the patient's baseline, patient does not check her blood sugar at her baseline. Patient denies any pain or complaints, patient does have Alzheimer's and is at her typical neuro baseline. Related Data Home Medications Medication Instructions Recorded Confirmed empagliflozin 10 mg tablet 10 mg PO DAILY 11/12/22 11/12/22 (Jardiance) ferrous sulfate 325 mg (65 mg 325 mg PO BID 11/12/22 11/12/22 iron) tablet (FeroSul) gabapentin 300 mg capsule 300 mg PO HS 11/12/22 11/12/22 levothyroxine 50 mcg tablet 50 mcg PO DAILY 11/12/22 11/12/22 lovastatin 40 mg tablet 40 mg PO DAILY 11/12/22 11/12/22 memantine 10 mg tablet 10 mg PO BID 11/12/22 11/12/22 metformin 500 mg tablet 500 mg PO BID 11/12/22 11/12/22 sertraline 50 mg tablet 100 mg PO DAILY 11/12/22 11/12/22 vitamin B complex (B 1 tablet PO DAILY 11/12/22 11/12/22 Complex-Vitamin B12 tablet) Allergies Allergy/AdvReac Type Severity Reaction Status Date / Time NO KNOWN DRUG ALLERGIES Allergy Unknown Y Uncoded 04/30/24 15:22 (Class Allergy) Review of Systems Review of Systems: All systems reviewed & are unremarkable except as noted in HPI and below PMFSH Past Medical History Medical History Chronic kidney disease, stage 3 Dementia Hyperlipidemia Hypertension Left leg DVT (08/2001) No history of major surgery within 1 month Type 2 diabetes mellitus Family History Family History Mother Alzheimer's dementia Social History Social History Social History: Surrogate medical decision maker: Aracelis Peck, daughter. Code status: Full code. Smoking status: Never smoker Alcohol intake: never Substance use: never Additional living arrangements comments: Lives alone in [place]. She has a 1-year-old dog named Franck. Daughter lives across the street. Additional occupation/education comments: Retired from [employer]. Spiritual care concerns: No Exam Narrative: APPEARANCE: Well appearing, no pain, no distress, well-nourished. HEAD: normocephalic, atraumatic. EYES: PERRLA/EOMI, conjunctivae clear. NOSE: Normal no drainage EARS:TMS clear with good light reflex. THROAT: Pharynx clear, no exudate. NECK: Supple. No adenopathy, no masses. RESPIRATORY: Airway patent, respirations nonlabored. Clear to auscultation bilaterally, no rales, rhonchi, wheezing. CARDIOVASCULAR: Regular rate and rhythm without murmurs rubs or gallops. ABDOMINAL: Soft, nontender, nondistended, normal bowel sounds MUSCULOSKELETAL: Moves all extremities. Strength/ROM intact, No edema, No calf tenderness. NEURO: Alert. Cranial nerves II through XII intact. Good gait. Good coordination SKIN: Warm, dry. Normal Color Course Vital Signs Vital signs: Vital Signs Temperature 97.8 F 04/30/24 15:18 Pulse Rate 69 04/30/24 15:18 Respiratory Rate 15 04/30/24 15:18 Blood Pressure 115/57 L 04/30/24 15:18 Pulse Oximetry 98 04/30/24 15:18 Temperature 97.8 F 04/30/24 15
[2024-04-30 17:25] LABS: Alanine Aminotransferase 11 U/L (6-35); Albumin Level 4.2 g/dL (3.5-5.1); Alkaline Phosphatase 79 U/L (38-126); Anion Gap 9 mmol/L (4-12); Aspartate Amino Transferase 19 U/L (14-36); Bilirubin,Total 0.3 mg/dL (0.2-1.3); Blood Urea Nitrogen 17 mg/dL (7-17); Calcium 9.3 mg/dL (8.4-10.2); Carbon Dioxide 23 mmol/L (22-30); Chloride 105 mmol/L (98-107); Estimated CRCL calculation 27 ml/min; Estimated Glomerular Filt Rate 40; Glucose 145 mg/dL (65-110); Lipase 106 U/L (23-300); Potassium 3.9 mmol/L (3.4-5.0); Sodium 137 mmol/L (137-145)
[2024-04-30 17:29] LABS: Beta-Hydroxybutyrate/Acetoacetate 0.09 mmol/L (0.02-0.27)
[2024-04-30 17:37] LABS: Basophils Absolute Auto 0.1 K/mm3 (0.0-0.1); Basophils Percent Auto 1.1 % (0.2-1.2); Eosinophils Absolute Auto 0.5 K/mm3 (0-0.3); Eosinophils Percent Auto 8.2 % (0-4.4); Hemoglobin 10.8 g/dL (12.0-15.0); Immature Granulocyte Absolute 0.02 K/mm3 (0.00-0.031); Immature Granulocyte Percent A 0.4 % (0-0.5); Lymphocytes Absolute Auto 2.25 K/mm3 (0.9-3.2); Lymphocytes Percent Auto 39.9 % (18.3-44.2); Mean Corpuscular HGB Conc 31.8 g/dl (32-36); Mean Corpuscular Hemoglobin 29.7 pg (26-34); Mean Corpuscular Volume 93.4 fl (80-100); Mean Platelet Volume 10.6 fl (7.4-10.4); Monocytes Absolute Auto 0.4 K/mm3 (0.1-0.6); Monocytes Percent Auto 7.1 % (2.6-8.5); Neutrophils Absolute Auto 2.5 K/mm3 (1.3-6.7); Neutrophils Percent Auto 43.3 % (45.5-73.1); Platelet Count Result 120 k/mm3 (150-375); Red Blood Count 3.64 M/mm3 (4.2-5.4); Red Cell Distribution Width 14.2 % (11.5-14.5); White Blood Count 5.6 K/mm3 (4.5-10.0)
[2024-04-30 18:20] VITALS: BP 135/83; PULSE 72; RESP 16; O2SAT 97
== END 2024-04-30 18:22 | disposition home or self-care (01) ==
PROVIDERS: Emergency Provider Emergency Medicine; PCP Family Medicine
DX: E11.65 Type 2 diabetes mellitus with hyperglycemia (principal); I12.9 Hypertensive chronic kidney disease with stage 1 through stage 4 chronic kidney disease, or unspecified chronic kidney disease; E11.22 Type 2 diabetes mellitus with diabetic chronic kidney disease; N18.30 Chronic kidney disease, stage 3 unspecified; E78.5 Hyperlipidemia, unspecified; Z86.718 Personal history of other venous thrombosis and embolism; Z79.84 Long term (current) use of oral hypoglycemic drugs; Z79.899 Other long term (current) drug therapy
CPT/HCPCS: 36415; 80053; 81003; 82010; 82948; 83690; 85025; 99283

== ENCOUNTER 2024-08-13 17:18 | Emergency (ER) | payer MEDICARE, OTHER, SELFPAY ==
--- NOTE | ~2024-08-13 | CT_ITS ---
EXAMINATION: CT brain wo con DATE: 08/13/2024 18:22 INDICATION: ams/confusion x1 day . TECHNIQUE: Computed tomography (CT) of the head was performed without intravenous contrast. The mA wa s adjusted according to patient size. Iterative reconstruction technique was employed. The dose-lengt h product was 605.33 mGy-cm. COMPARISON: 11/10/2022. FINDINGS: No acute intracranial hemorrhage or extra-axial fluid collection. No hydrocephalus, mass, or herniation. No acute ischemic infarct. Unremarkable dural venous sinus attenuation. No acute osseous abnormality. The aerated spaces are clear. Moderate atrophy and mild chronic white matter change. Atherosclerotic intracranial calcification. Le ft frontal encephalomalacia. IMPRESSION: No acute intracranial process. Reviewed, dictated and finalized at location K. TRACER
--- NOTE | ~2024-08-13 | XR_ITS ---
EXAMINATION: XR chest 1V portable Exam Date/Time: 08/13/2024 18:12 METER READER HISTORY: ams/cough Comparison: 11/12/2022. RESULT: Lines, tubes, and devices: None. Lungs and pleura: Mild diffuse reticular opacities. Minimal fissural fluid. Cardiomediastinal silhouette: Stable. Other: No acute osseous or upper abdominal finding. IMPRESSION: Mild interstitial edema. Reviewed, dictated and finalized at location K. R READER IMPRESSION: Mild interstitial edema.
[2024-08-13 17:21] VITALS: BP 133/68; PULSE 66; RESP 20; O2SAT 94
--- OUTSIDE RECORDS SUMMARY | 2024-08-13 17:21 | XMS_ITS | Referral Summary ---
Author Organization [facility] Address [address] [place] [id number] Care Team Providers Care Pick Pack Worker Name Role Phone Terrance Dara GIORGI Primary Care Provider [phone] Allergies No known active allergies Medications gabapentin (NEURONTIN) 300 mg capsule gabapentin 300 mg caps Active FeroSuL 325 mg (65 mg iron) tablet Take 1 tablet by mouth 2 (two) times a day 2 Active Euthyrox 50 mcg tablet Take 50 mcg by mouth daily for 30 days 2 Active lovastatin (MEVACOR) 40 mg tablet Take 40 mg by mouth nightly 2 Active metFORMIN (GLUCOPHAGE) 500 mg tablet Take 500 mg by mouth 2 (two) times a day 2 Active sertraline (ZOLOFT) 50 mg tablet sertraline 50 mg tablet Active memantine (NAMENDA) 10 mg tabletIndicatio ns:Moderate to Severe Alzheimer's Type Dementia Take 1 tablet (10 mg total) by mouth 2 (two) times a day 180 tablet 3 3 Active donepeziL (ARICEPT) 10 mg tablet Take 1/2 tab at night for 7 days then take 1 tab nightly thereafter. 30 tablet 11 3 Active Active Problems Problem Noted Date Diagnosed Date Late onset Alzheimer's demen tia without behavioral disturbance 05/29/2020 Social History Tobacco Use Types Packs/Day Years Used Date Smoking Tobacco: Never Tobacco Cessation:Counseling Given: Not Answered AUDIT-C Answer Date Recorded Q1: How often do you have a drink containing alc ohol? Never 10/15/2021 Average Number of Drinks Not on file 022 Q3: How often do you have si x or more drinks on one occasion? Never 10/15/2021 Personal Safety Answer Date Recorded Getting School Help Needed Not on file 09/17 Comments No Sex and Gender Information Value Date Recorded Sex Assigned at Not on file Legal Sex Female 9:43 AM CDT Gender Identity Not on file Sexual Orientation Not on file Last Filed Vital Signs Vital Sign Reading Time Taken Comments Blood Pressure 129/70 04/28/2022 11:21 AM CDT Pulse 71 04/28/2022 11:21 AM CDT Temperature 36.6 ??C (97.9 ??F) 10/15/2021 12:35 PM C DT Respiratory Rate 16 10/15/2021 3:20 PM CDT Oxygen Saturation 99% 04/28/2022 11:21 AM CDT Inhaled Oxygen Concentration - - Weight 60.1 kg (132 lb 9.6 oz) 04/28/2022 11:21 AM CDT Height 157.5 cm (5' 2 ) 04/28/2022 11:21 AM CDT Body Mass Index 24.25 04/28/2022 11:21 AM CDT Plan of Treatment Not on file Insurance MEDICARE [facility] MEDICARE [facility] MEDICARE Advance Directives For more information, please contact: [phone] * Full Code (Latest Code Status on File) Date Activated Date Inactivated Comments 10/15/2021 12:28 PM 10/16/2021 4:51 AM Care Teams Pick Pack Worker Relationship Specialty Start Date End Date Dara Carlos NP PCP - General Nurse Practitioner 03/13/20
--- OUTSIDE RECORDS SUMMARY | 2024-08-13 17:21 | XMS_ITS | Continuity of Care Document ---
Author Organization [facility] Address [address] [place] [address] [place] [address] Phone Care Team Providers Care Hammerer Name Role Phone Jasso OD, Sylvain Unavailable Unavailable Procedures Procedure Date Eye Exam & Treatment Refraction Eye Exam & Treatment Refraction Advance Directives Directive Yes / No Effective Date File Name No Information Encounters Encounter Description Practice Location Reason(s) For Visit Diagnoses Date Provider Providers Copied on Encounter [facility], [address], [place], [place], [id number], tel:[phone] [facility] No Information 5-201 0 Jasso OD Sylvain. [address], [address], [place], [address], [place]. tel:[phone] Referring Provider: Jg Fowler MD, [address], [place], [place], [facility]. tel:[phone] [facility], [address] [place] [address] [address], [place], [place], [id number], tel:[phone] [facility] No Information 0-200 7 Jasso OD Sylvain. [address], [address], [place], [address], . tel:[phone] Family History Family Member Type Diagnosis Age At Onset No Information Payers Payer name Insurance type Covered constitution party ID Authoriza tion(s) No Information Social History Type Description Quantity Date Captured Comments Sex Female Smoking Status No Information Chief Complaint And Reason For Visit No Information Reason For Referral Reason For Referral No Information History Of Present Illness Encounter Date Complaint History Of Prese nt Illness No Information Functional Status Date Functional Assessmen t No Information Instructions Date Instruction Additional Infor mation No Information Assessments Type Assessment Date No Information Patient Care Teams Name Effective Dates (start - stop) Status Members No Information
--- OUTSIDE RECORDS SUMMARY | 2024-08-13 17:21 | XMS_ITS | Clinical Summary ---
Author Organization [facility] Address [address] [place] [id number] Care Team Providers Care Director Export Name Role Phone Terrance Dara GIORGI Primary Care Provider [phone] Allergies No known active allergies Medications gabapentin [...] Alzheimer's demen tia without behavioral disturbance 05/29/2020 Surgical History Surgery Date Site/Laterality Comments FL FLUORO GUIDED LUMBAR PUNCTURE 10/15/2021 Right Medical History Medical History Date Comments Hypertension Diabetes mellitus (HCC) Type 2 diabetes mellitus (HCC) Hyperthyroidism Hyperlipidemia Social History Tobacco Use Types Packs/Day Years [...] on file Sexual Orientation Not on file Obstetrics History Last Filed Vital Signs Vital Sign Reading [...] 04/28/2022 11:21 AM CDT Plan of Treatment Health Maintenance Due Date Last Done Comments Depression Screening 1945 Hepatitis C Screening 1945 Osteoporosis Screening-Bone Density Scan 1945 Pneumococcal vaccine 65+ (1 of 2 - PCV) 1952 Hepatitis B Screening 1964 Zoster Vaccine (1 of 2) 1996 Well Visit 65+ 2011 Fall Risk Assessment 10/15/2022 10/15/2021 Influenza Vaccine (#1) 2024 DTaP/Tdap/Td Vaccine (2 - Td or Tdap) 03/20/202708/2016 Insurance MEDICARE [facility] MEDICARE [facility] MEDICARE Advance Directives For more information, please contact: [phone] * Full Code (Latest Code Status on File) Date Activated Date Inactivated Comments 10/15/2021 12:28 PM 10/16/2021 4:51 AM Care Teams Director Export Relationship Specialty Start Date End Date Dara Carlos NP PCP - General Nurse Practitioner 03/13/20
--- OUTSIDE RECORDS SUMMARY | 2024-08-13 17:28 | XMS_ITS | Continuity of Care Document ---
Author Organization [facility] Address [address] [place] [address] [place] [address] Phone Care Team Providers Care Distributing Clerk Name Role Phone Jasso OD, Sylvain Unavailable Unavailable Procedures Procedure Date Eye Exam & Treatment Refraction Eye Exam & Treatment Refraction Advance Directives Directive Yes / No Effective Date File Name No Information Encounters Encounter Description Practice Location Reason(s) For Visit Diagnoses Date Provider Providers Copied on Encounter [facility], [address], [place], [place], [id number], tel:[phone] [facility] No Information 5-201 0 Jasso OD Sylvain. [address], [address], [place], [address], [place]. tel:[phone] Referring Provider: Jg Fowler MD, [address], [place], [place], [facility]. tel:[phone] [facility], [address] [place] [address] [address], [place], [place], [id number], tel:[phone] [facility] No Information 0-200 7 Jasso OD Sylvain. [address], [place], [address], . tel:[phone] Family History Family Member Type Diagnosis Age At Onset No Information Payers Payer name Insurance type Covered green party ID Authoriza tion(s) No Information Social [...]
--- NOTE | 2024-08-13 17:35 | ED_ITS ---
HPI - Altered Mental Status General Chief Complaint: Altered Mental Status Stated Complaint: CONFUSION, INCONTINENCE, HI BLOOD SUGAR Source: patient and family Mode of arrival: ambulatory Limitations: no limitations History of Present Illness HPI narrative: patient is a 79-year-old female with altered mental status on top of her baseline dementia which is moderate in the past 2 days. She has had loss of urination. This is a new finding. Her blood sugar at home was elevated but unclear value. Accu-Chek here was 2-300 range. No fall or head injury. MD complaint: altered mental status and confusion Onset (ago): day(s) (2) Timing confirmed by: family member Severity: moderate Consistency of symptoms: constant Context: diabetes and other ( Urinary changes and loss of urine over past day) Associated symptoms: denies other symptoms Treatments prior to arrival: other ( none) Related Data Home Medications ?Medication ?Instructions ?Recorded ?Confirmed ?Last Taken ?Type empagliflozin 10 mg tablet 10 mg PO DAILY 11/12/22 11/12/22 Unknown History (Jardiance) ferrous sulfate 325 mg (65 mg 325 mg PO BID 11/12/22 11/12/22 Unknown History iron) tablet (FeroSul) gabapentin 300 mg capsule 300 mg PO HS 11/12/22 11/12/22 Unknown History levothyroxine 50 mcg tablet 50 mcg PO DAILY 11/12/22 11/12/22 Unknown History lovastatin 40 mg tablet 40 mg PO DAILY 11/12/22 11/12/22 Unknown History memantine 10 mg tablet 10 mg PO BID 11/12/22 11/12/22 Unknown History metformin 500 mg tablet 500 mg PO BID 11/12/22 11/12/22 Unknown History sertraline 50 mg tablet 100 mg PO DAILY 11/12/22 11/12/22 Unknown History vitamin B complex (B 1 tablet PO DAILY 11/12/22 11/12/22 Unknown History Complex-Vitamin B12 tablet) Allergies Allergy/AdvReac Type Severity Reaction Status Date / Time NO KNOWN DRUG ALLERGIES Allergy Unknown Y Uncoded 04/30/24 15:22 (Class Allergy) Review of Systems 2 Review of Systems: All systems reviewed & are unremarkable except as noted in HPI and below Constitutional: Constitutional: Reports no additional constitutional complaints Eyes: Eyes: Reports no additional eye complaints ENT: Reports system reviewed and no additional complaints, except as documented Cardiovascular: Cardiovascular: Reports no additional cardiovascular complaints Respiratory: Respiratory: Reports no additional respiratory complaints Gastrointestinal: Gastrointestinal: Reports no additional gastrointestinal complaints Genitourinary: Genitourinary: Reports no additional female genitourinary complaints Musculoskeletal: Musculoskeletal: Reports no additional musculoskeletal complaints Integumentary/Breasts: Skin/Breast: Reports system reviewed and no additional complaints, except as docu Neurologic: Reports system reviewed and no additional complaints, except as documented Psychiatric: Psychiatric: Reports no additional psychiatric complaints Endocrine: Endocrine: Reports no additional endocrine complaints Hematologic/Lymphatic: Hematologic/Lymphatic: Reports no additional hematologic/lymphatic complaints Allergic/Immunologic: Allergic/Immunologic: Reports no additional allergic/immunologic complaints PMFSH Past Medical History Medical History No history of major surgery within 1 month Type 2 diabetes mellitus Chronic kidney disease, stage 3 Dementia Left leg DVT (08/2001) Hyperlipidemia Hypertension Family History Family History Mother Alzheimer's dementia Social History Social History Social History: Surrogate medical decision maker: Aracelis Peck, daughter. Code status: Full code. Smoking status: Never smoker Alcohol intake: never Substance use: never Additional living arrangements comments: Lives alone in [place]. She has a 1-year-old dog named Franck. Daughter lives across the street. Additional occupation/education comments: Retired from [employer]. Spiritual care concerns: No Exam 2 Const: General: healthy appearing Nutritional Appearance: well nourished Limitations: altered mental status HENMT: Head: normal to inspection Ears: external ears normal F torres/Nose/Sinus: Normal external nose present Eyes: Conjunctivae: conjunctivae normal Pupils: Equal, round and reactive pupils present EOM: EOMs intact bilaterally Neck: Neck: normal visual inspection Chest: Chest palpation & inspection: normal inspection of the chest Resp: Effort & Inspection: normal respiratory effort and not labored A uscultation: clear to auscultation bilaterally and no crackles Cardio: Rate: regular rate Rhythm: regular rhythm Heart sounds: no murmurs GI: Inspection: non-distended GI Palp: Yes Soft to palpation and No Tenderness to palpation present (GI) Auscultation: normal bowel sounds : General: Yes bladder normal to palpation Back/Spine/Pelvis: Back: no CVA tenderness Skin: General skin exam: normal color Rashes: no rashes Wounds: no wounds Neuro: General: No patient oriented x3, moves all extremities, no meningeal signs, no focal motor deficits and CN's II-XI intact bilaterally Cranial nerves: Yes Nystagmus not present Speech: normal speech Gait exam (Neuro): Normal gait present Other: fast exam was negative, NIH score 0, GCS was 15 Extrem: General: normal to inspection Psych: Mental Status: mental status grossly abnormal Affect: normal affect Attitude: cooperative Course Vital Signs Vital signs: Vital Signs Pulse Rate 66 08/13/24 17:21 Respiratory Rate 20 08/13/24 17:21 Blood Pressure 133/68 08/13/24 17:21 Pulse Oximetry 94 08/13/24 17:21 Pulse Rate 66 08/13/24 17:21 Respiratory Rate 20 08/13/24 17:21 Blood Pressure 133/68 08/13/24 17:21 Pulse Oximetry 94 08/13/24 17:21 Oxygen Delivery Room Air 08/13/24 17:22 MDM - Altered Mental Status MDM Narrative Medical decision making narrative: patient is a 79-year-old female with altered mental status and confusion with urinary changes. We will go ahead and do workup at this time. Lab Data Attestation: I reviewed the patient's lab results. 08/13/24 18:49 08/13/24 18:49 Labs: Lab Results 08/13/24 08/13/24 Range/Units 17:36 18:49 WBC 4.3 L (4.8-10.8) K/mm3 RBC 3.89 L (4.20-5.40) M/mm3 Hgb 11.3 L (11.7-13.8) g/dL Hct 35.8 (35.0-42.0) % MCV 92.0 (78.0-102.0) fL MCH 29.0 (27.0-31.0) pg MCHC 31.6 L (32-36) g/dL RDW 13.6 (11.6-14.4) % Plt Count 127 L (150-420) K/mm3 MPV 10.0 (9.2-11.8) fl Immature Gran % (Auto) 0.5 H (0.0-0.0) % Neut % (Auto) 71.1 H (50.0-70.0) % Lymph % (Auto) 16.6 L (18.0-42.0) % [place] % (Auto) 10.6 (2.0-11.0) % Eos % (Auto) 0.5 L (1.0-6.0) % Baso % (Auto) 0.7 (0.0-1.0) % Lymph # (Auto) 0.72 L (1.10-4.50) K/mm3 [place] # (Auto) 0.46 (0.10-0.90) K/mm3 Eos # (Auto) 0.02 (0.02-0.50) K/mm3 Baso # (Auto) 0.03 (0.00-0.10) K/mm3 Abs Immat Gran (auto) 0.02 H (0.00-0.00) K/mm3 Absolute Neuts (auto) 3.09 (1.70-7.20) K/mm3 Absolute Nucleated RBC 0.00 (0.00-0.00) K/mm3 Nucleated RBC % 0.0 (0-0.0) % Sodium 136 (136-145) mmol/L Potassium 3.8 (3.5-5.1) mmol/L Chloride 101 (98-108) mmol/L Carbon Dioxide 24 (21-32) mmol/L Anion Gap 11 (4-12) mmol/L BUN 24 H (7-18) mg/dL Creatinine 1.45 H (0.55-1.02) mg/dL Estim Creat Clear Calc Not Reportable Estimated GFR 35 L (59 - ) Glucose 202 H (70-99) mg/dL POC Capillary Glucose 225 H (65-105) mg/dl Calculated Osmolality 292 (285-295) mOsm/kg Calcium 9.1 (8.5-10.1) mg/dL Total Bilirubin 0.6 (0.00-1.00) mg/dL AST 14 L (15-37) U/L ALT 15 (14-59) U/L Alkaline Phosphatase 96 (46-116) U/L Troponin I 4.9 (0.00-60.4) ng/L Total Protein 7.4 (6.4-8.2) g/dL Albumin 4.0 (3.4-5.0) g/dL Urine Color Light yellow (Yellow) Urine Appearance Clear (Clear) Urine pH 5.5 (5.0-8.0) Ur Specific [place] 1.020 (1.010-1.020) Urine Protein Trace H (Negative) Urine Glucose (UA) 3+ H (Negative) Urine Ketones 1+ H (Negative) Ur Blood (Man) Trace-intact H (Negative) Urine Nitrate Negative (Negative) Urine Bilirubin Negative (Negative) Urine Urobilinogen 0.2 (0.2-1.0) mg/dL Leukocyte Esterase Rfl Negative (Negative) JENNIFER/UL Amorphous Sediment Moderate H (None) Imaging Data Attestation: I personally reviewed and interpreted this imaging study as follows: Radiologist's impression: chest x-ray shows IMPRESSION: Mild interstitial edema. ECG Data EKG #1: Attestation: I personally reviewed and interpreted this ECG as follows: ECG completion date: 08/13/24 ECG completion time: 18:09 EKG Interpretation: normal rate, sinus rhythm, no ectopy, non-specific ST changes, normal QRS, normal QT and NL axis Discharge Plan Discharge Clinical Impression: KAPIL (acute kidney injury) Dementia Qualifiers: Dementia type: unspecified type Dementia severity: moderate Dementia behavioral or psychological symptom: unspecified whether behavioral, psychotic, or mood disturbance or anxiety Qualified Code(s): F03.B0 - Unspecified dementia, moderate, without behavioral disturbance, psychotic disturbance, mood disturbance, and anxiety Patient Disposition: Home, Self-Care Condition: Stable Instructions: Dementia (ED) Additional Instructions: please follow-up with primary doctor in the next week. I suggest further discussion with the primary about congestive heart failure and workup as an outpatient. Also make sure she is drinking fluids to prevent dehydration. At the same time, not too much fluids stimulate worsening of congestive heart failure possibilities. Please have the primary doctor repeat a chemistry panel to look at the kidney function. Patient Language: Syriac Prescriptions: No Action metformin 500 mg tablet 500 mg PO BID lovastatin 40 mg tablet 40 mg PO DAILY levothyroxine 50 mcg tablet 50 mcg PO DAILY ferrous sulfate [FeroSul] 325 mg (65 mg iron) tablet 325 mg PO BID gabapentin 300 mg capsule 300 mg PO HS vitamin B complex [B Complex-Vitamin B12] Tablet 1 tablet PO DAILY sertraline 50 mg tablet 100 mg PO DAILY memantine 10 mg tablet 10 mg PO BID Jardiance 10 mg tablet 10 mg PO DAILY melatonin 5 mg Tablet 5 mg PO HS Qty: 30 0RF Follow-up/Referrals: Tulio,Corina Gaona MD [Primary Care Provider] - Time of Disposition: 20:38
--- NOTE | 2024-08-13 17:35 | ECG_ITS ---
Test Date: 2024-08-13 17:58:57 Measurements Intervals [place] Rate: 82 P: 25 MA: 125 QRS: 3 QRSD: 86 T: -23 QT: 379 QTc: 444 Interpretive Statements SINUS RHYTHM WITH SINUS ARRHYTHMIA ST DEVIATION AND MODERATE T-WAVE ABNORMALITY, CONSIDER LATERAL ISCHEMIA [-0.1+ mV T-WAVE IN I/aVL/V5/V6] No previous ECG available for comparison Electronically Signed On 08-14-2024 21:22:56 BALANCING MACHINE OPERATOR by Harpreet Esteves M.D.
[2024-08-13 17:38] LABS: Glucose Point of Care 225 mg/dl (65-105)
[2024-08-13 18:49] LABS: Basophils Absolute Auto 0.03 K/mm3 (0.00-0.10); Basophils Percent Auto 0.7 % (0.0-1.0); Eosinophils Absolute Auto 0.02 K/mm3 (0.02-0.50); Eosinophils Percent Auto 0.5 % (1.0-6.0); Hematocrit 35.8 % (35.0-42.0); Hemoglobin 11.3 g/dL (11.7-13.8); Immature Granulocyte Absolute 0.02 K/mm3 (0.00-0.00); Immature Granulocyte Percent A 0.5 % (0.0-0.0); Lymphocytes Absolute Auto 0.72 K/mm3 (1.10-4.50); Lymphocytes Percent Auto 16.6 % (18.0-42.0); Mean Corpuscular HGB Conc 31.6 g/dL (32-36); Monocytes Absolute Auto 0.46 K/mm3 (0.10-0.90); Monocytes Percent Auto 10.6 % (2.0-11.0); Neutrophils Absolute Auto 3.09 K/mm3 (1.70-7.20); Neutrophils Percent Auto 71.1 % (50.0-70.0); Platelet Count Result 127 K/mm3 (150-420); Red Blood Count 3.89 M/mm3 (4.20-5.40); Red Cell Distribution Width 13.6 % (11.6-14.4); White Blood Count 4.3 K/mm3 (4.8-10.8)
--- NOTE | 2024-08-13 19:00 | PC.NURSE ---
ASSUMED CARE. REPORT RECEIVED FROM ARANZA ROCA.
[2024-08-13 19:04] LABS: Alanine Aminotransferase 15 U/L (14-59); Alkaline Phosphatase 96 U/L (46-116); Anion Gap 11 mmol/L (4-12); Aspartate Amino Transferase 14 U/L (15-37); Bilirubin,Total 0.6 mg/dL (0.00-1.00); Blood Urea Nitrogen 24 mg/dL (7-18); Calcium 9.1 mg/dL (8.5-10.1); Carbon Dioxide 24 mmol/L (21-32); Chloride 101 mmol/L (98-108); Estimated Glomerular Filt Rate 35; Glucose 202 mg/dL (70-99); Osmolality Calculated 292 mOsm/kg (285-295); Potassium 3.8 mmol/L (3.5-5.1); Sodium 136 mmol/L (136-145); Total Protein 7.4 g/dL (6.4-8.2); Troponin I 4.9 ng/L (0.00-60.4)
--- NOTE | 2024-08-13 19:24 | PC.NURSE ---
PATIENT BEING AMBULATED TO THE BATHROOM FOR URINE SAMPLE
[2024-08-13 19:58] LABS: Add Urine Microscopic? YES; Appearance Urine Clear (Clear); Bilirubin Urine Negative (Negative); Blood Urine Trace-intact (Negative); Color Urine Light Yellow (Yellow); Glucose Urine UA 3+ (Negative); Ketones Urine 1+ (Negative); Leukocyte Esterase Ur Negative LEU/UL (Negative); Nitrate Urine Negative (Negative); Protein Urine Trace (Negative); Urobilinogen Urine 0.2 mg/dL (0.2-1.0); pH Urine 5.5 (5.0-8.0)
--- NOTE | 2024-08-13 20:00 | PC.NURSE ---
RESTING QUIETLY ON STRETCHER WITH FAMILY AT HER SIDE. NO NEEDS VOICED AT THIS TIME. CALL LIGHT IN REACH
[2024-08-13 20:19] LABS: Amorphous Sediment Urine Moderate
[2024-08-13 20:45] VITALS: BP 115/62; PULSE 89; RESP 16; O2SAT 96
== END 2024-08-13 20:45 | disposition home or self-care (01) ==
PROVIDERS: Emergency Provider Emergency Medicine; PCP Family Medicine
DX: F03.B0 Unspecified dementia, moderate, without behavioral disturbance, psychotic disturbance, mood disturbance, and anxiety (principal); I12.9 Hypertensive chronic kidney disease with stage 1 through stage 4 chronic kidney disease, or unspecified chronic kidney disease; E11.22 Type 2 diabetes mellitus with diabetic chronic kidney disease; N18.30 Chronic kidney disease, stage 3 unspecified; N17.9 Acute kidney failure, unspecified
CPT/HCPCS: 36415; 70450; 71045; 80053; 81001; 82948; 84484; 85025; 87040; 93005; 99284